=== PATIENT | male | born 1960 ===

== ENCOUNTER 2025-09-09 10:30 | Outpatient (REF) | payer MEDICARE, SELFPAY ==
--- OUTSIDE RECORDS SUMMARY | 2025-09-09 11:18 | XMS_ITS | Patient Health Record ---
Author Organization [facility] Jenny Mcarthur Address [address] [place] [address] Care Team Providers Care Hand Rug Braider Name Role Phone Uvaldo Tejeda DO Primary Care Provider Unavaila Antoine Parson Unavailable [phone] Allergies Allergen (clinical drug ingredient) Drug/Non Drug Allergy documented on EMR Reaction Allergy Type Onset Date Status oxycodone Oxycodone HCl memory loss Drug Allergy A ctive Reason For Referral No Information Medications Medication SIG (Take, Route, Frequency, Duration) Notes Start Date End Date Status Ear Wax Removal Drops 6.5 % TAKE ONE CAPSULE BY MOUTH EVERY MORNING Otic; Duration: 004 Unknown Valsartan-hydroCHLOROthiaz areli 320-25 MG 1 tablet Orally Once a day Unknown Clopidogrel Bisulfate 75 MG TAKE ONE CAPSULE BY MOUTH EVERY MORNING Oral; Duration: 030 Unknown Econazole Nitrate 1 % 1 application to a ffected area Externally Once a day; Duration: 30 days Unknown Fluticasone Propionate 50 MCG/ACT TAKE ONE CAPSULE BY MOUTH EVERY MORNING Nasal; Duration: 025 Unknown Econazole Nitrate 1 % 1 application to a ffected area Externally Once a day; Duration: 30 days 01/21/2014 Unknown Klor-Con M10 10 MEQ TAKE ONE CAPSULE BY MOUTH EVERY MORNING Oral; Duration: 014 Unknown Metoprolol Succinate ER 50 MG TAKE ONE CAPSULE BY MOUTH EVERY MORNING Oral; Duration: 030 Unknown metFORMIN HCl 500 MG TAKE ONE CAPSULE BY MOUTH EVERY MORNING Oral; Duration: 030 Unknown Qvar 40 MCG/ACT TAKE ONE CAPSULE BY MOUTH EVERY MORNING Inhalation; Duration: 030 Unknown Nitrostat 0.4 MG TAKE ONE CAPSULE BY MOUTH EVERY MORNING Sublingual; Duration: 005 Unknown Social History Tobacco use other than smoking: Question Answer Notes Are you an other tobacco user? 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) Active confirmed Problem Keratoma (37357677) Keratoma (701.1) Active confirmed Plan Of Treatment Pending Test Test Name Order Date [id number] NAIL, 6 OR MORE 01/21/2014 [id number] NAIL, 6 OR MORE 10/04/2014 [id number] SKIN LESIONS, OVER 4 10/04/20 14 [id number] SKIN LESIONS, OVER 4 01/22/20 14 Insurance Providers Payer Name Payer Address Payer Phone Subscriber Number Group Number Insured Name Patient Relationship to Insured Coverage Start Date Coverage End Date [facility] [address] [place] [address] [id number] Darinel Bravo Self - patient is the insured Medical (General) History Medical History History ICD Code Diabetic Hypertension Chicken pox Surgical History Surgery Date(Month/Year) stent insertion for blockage in artery 2 005
--- OUTSIDE RECORDS SUMMARY | 2025-09-09 11:18 | XMS_ITS ---
Continuity of Care Document (CCD) Created on: September 09, 2025 Darinel Bravo External Reference #: [id number] : [id number] Sex: Male Author Organization [facility] [address] [place] [address] Phone [phone] Social History Type Date Description Comments Sex Male Sex Unknown Medical Devices Description No Information Available Encounters Description No Information Available Assessments Description No Information Available Plan of Treatment No Information Available Functional Status Description No Information Available Mental Status Description No Information Available Referrals Description No Information Available
--- OUTSIDE RECORDS SUMMARY | 2025-09-09 11:18 | XMS_ITS | Clinical Summary ---
Author Organization [facility] Address [address] [place] [address] Phone Care Team Providers Care Data Migration Lead Name Role Phone Unavailable Primary Care Provider Unavailabl e Allergies Active Allergy Reactions Criticality Noted Date Comments Diphenhydramine Hcl 08/10/2025 Oxycodone-Acetaminophen 08/10/2025 Medications No known medications Encounters Date Type Department Care Team Description 08/10/2025 10:15 AM EDT Office Visit Pulmonology [facility] [address] [place] [phone] Kasey Alfred MD Moderate asthma, unspecified whether complicated, unspecified whether persistent (Primary Dx); Gastroesophageal reflux disease without esophagitis; Primary hypertension; Obstructive sleep apnea; Seasonal allergic rhinitis due to pollen from Last 3 Months Social History Tobacco Use Types Packs/Day Years Used Date Smoking Tobacco: Never Smokeless Tobacco: Never Tobacco Cessation:Counseling Given: Not Answered Sex and Gender Information Value Date Recorded Sex Assigned at Not on file Legal Sex Male 12:21 PM EDT Gender Identity Not on file Sexual Orientation Not on file Obstetrics History Last Filed Vital Signs Vital Sign Reading Time Taken Comments Blood Pressure 142/79 08/10/2025 10:26 AM EDT Pulse 59 08/10/2025 10:26 AM EDT Temperature 36.1 C (97 F) 08/10/2025 10:26 AM EDT Respiratory Rate 20 08/10/2025 10:26 AM EDT Oxygen Saturation 98% 08/10/2025 10:26 AM EDT Inhaled Oxygen Concentration - - Weight 99.3 kg (219 lb) 08/10/2025 10:26 AM EDT Height 172.7 cm (5' 8 ) 08/10/2025 10:26 AM EDT Body Mass Index 33.3 08/10/2025 10:26 AM EDT Plan of Treatment Upcoming Encounters Date Type Department Care Team (Late st Contact Info) Description 11/15/2025 10:45 AM EST Ancillary Procedure Pulmonology [facility] [address] [facility] [address] [place] [phone] 11/15/2025 11:30 AM EST Office Visit Pulmonology [facility] [address] [facility] [address] [place] [phone] Kasey Alfred MD [address] [place] [phone] Health Maintenance Due Date Last Done Comments Colorectal Cancer Screening: Colonoscopy 1960 Diabetes: Annual GFR (Glomerular Filtration Rate) 1960 Diabetes: Annual Foot Exam 01/19/1968 Diabetes: Annual Retina Eye Exam 01/19/1968 RSV Immunization Adult Patients (1 - Risk 50-74 years 1-dose series) 01/19/2008 Zoster Vaccines (1 of 2) 01/19/2008 Depression Screening 10/20/2024 COVID-19 Vaccine ( season) 2025 07/25/2021, 10/31/2020, 10/10/2020 Influenza Vaccine (#1) 2025 , 07/22/2022, 08/07/2021, Additional history exists Cholesterol Screening (Lipid Panel) 07/27/2025 Falls Risk Assessment 07/27/2025 Hepatitis C Screening 07/27/2025 Medicare Annual Wellness Visit 07/27/2025 Social Influencers of Health Screening 07/27/2025 Diabetes: Annual Urine Albumin-Creatinine Ratio (uACR) 08/10/2025 Diabetes: Blood Sugar Control Test (HGBA1C) 08/10/2025 Hypertension/CHF/CAD Annual BMP Blood Test 08/10/2025 DTaP,Tdap,and Td Vaccines (2 - Td or Tdap) 01/31/2032 01/30/2022 Pneumococcal Vaccine: 50+ Years Completed 01/30/2023, 01/20/2017 HIB Vaccines Aged Out No longer eligi ble based on patient's age to complete this topic HPV Vaccines Aged Out No longer eligi ble based on patient's age to complete this topic Hepatitis A Vaccines Aged Out No long er eligible based on patient's age to complete this topic Hepatitis B Vaccines Aged Out No long er eligible based on patient's age to complete this topic IPV Vaccines Aged Out No longer eligi ble based on patient's age to complete this topic MMR Vaccines Aged Out No longer eligi ble based on patient's age to complete this topic Meningococcal ACWY Vaccine Aged Out N o longer eligible based on patient's age to complete this topic Meningococcal B Vaccine Aged Out No l onger eligible based on patient's age to complete this topic RSV Immunization Patients Under 20 months Aged Out No longer eligible based on patient's age to complete this topic Varicella Vaccines Aged Out No longer eligible based on patient's age to complete this topic Insurance [employer]
[2025-09-09 13:19] LABS: MANUAL DIFF FLAG NO
[2025-09-09 13:27] LABS: Hematocrit 47.4 % (42.0-52.0); Hemoglobin 15.8 g/dl (14.0-18.0); Imm Gran Abs Auto 0.02 X10*3/uL (0.00-0.03); Imm Gran Pct Auto 0.4 % (0.0-0.4); Lymphocytes Absolute Auto 2.1 X10*3/uL (1.2-4.9); Mean Corpuscular HGB Conc 33.3 g/dl (31.0-36.0); Mean Corpuscular Hemoglobin 29.0 pg (27.0-33.0); Mean Corpuscular Volume 87.0 fL (80.0-98.0); NRBC Pct Auto 0.0 /100WBC (0.0-0.2); Platelet Count 211 X10*3/uL (160-400); Red Blood Count 5.45 X10*6/uL (4.60-5.80); White Blood Count 5.2 X10*3/uL (4.8-10.8)
[2025-09-09 13:28] LABS: NRBC Abs Auto 0.000 X10*3/uL (0.0-0.012)
[2025-09-09 13:49] LABS: Alanine Aminotransferase 38 U/L (0-40); Albumin Level 4.8 g/dL (3.5-5.0); Alkaline Phosphatase 88 U/L (39-117); Anion Gap 12 (12-20); Aspartate Amino Transferase 40 U/L (5-37); Blood Urea Nitrogen 14 mg/dL (9-16); Calcium 9.8 mg/dL (8.4-10.2); Carbon Dioxide 27 mmol/L (22-29); Chloride 103 mmol/L (96-108); Cholesterol 182 mg/dL (<200); Estimated Glomerular Filt Rate > 60; HDL Cholesterol 26 mg/dL (>40); Potassium 3.6 mmol/L (3.3-5.1); Sodium 138 mmol/L (135-145); Total Protein 8.1 g/dL (6.5-8.0); Triglycerides 151 mg/dL (<150)
[2025-09-09 14:09] LABS: Vitamin B12 1106 pg/mL (200-900)
[2025-09-09 14:38] LABS: Microalbum/Creatinine Ratio Ur 41.2 ug/mg cr (<30)
== END 2025-09-09 10:31 | disposition home or self-care (01) ==
LOC: HO.HKASLDS 10:30
PROVIDERS: PCP Internal Medicine; Visit Provider Internal Medicine
DX: I10 Essential (primary) hypertension (principal); I25.10 Atherosclerotic heart disease of native coronary artery without angina pectoris; E78.5 Hyperlipidemia, unspecified; E11.9 Type 2 diabetes mellitus without complications; E66.9 Obesity, unspecified; J45.909 Unspecified asthma, uncomplicated; E53.8 Deficiency of other specified B group vitamins; E55.9 Vitamin D deficiency, unspecified
CPT/HCPCS: 36415; 80053; 80061; 82043; 82306; 82570; 82607; 83036; 84443; 85025